=== PATIENT | female | born 1985 | race Asian ===

== ENCOUNTER 2017-08-22 12:21 | Emergency (ER) | payer OTHER ==
[~2017-08-22] VITALS: Ht 160 cm; Wt 68.0 kg
[2017-08-22 12:35] VITALS: TEMP 36.8; Ht 160 cm; Wt 68.0 kg
[2017-08-22] MEDS ORDERED: GELATIN SPONGE 12-7MM EXT ONE (13:00)
[2017-08-22 13:41] VITALS: BP 116/74; PULSE 67; O2SAT 100
--- NOTE | 2017-08-23 15:23 | EMERGENCY ROOM VISIT NOTE ---
ED Visit Note First contact with patient: 12:45 Chief Complaint: I cut my left index finger. History of Present Illness: Ms. Maryanne Rodgerss a 31-year-old [place] female who ambulates into the ED complaining of the left index finger laceration. She reports approximately one hour before she arrived in the emergency department she was cutting onions with a sharp knife and cut her left index finger. She reports she has been trying to control bleeding prior to arrival at the hospital but did not wash her wound. Currently she is complaining of a stinging/burning pain in the area of her laceration. She rates her discomfort 7/10. Her pain is nonradiating. Her pain worsens with palpation. She has not identified any alleviating factors related to the pain. She has not taken medications for pain prior to arrival at the hospital. She denies any associated symptoms including other finger pain , finger weakness/numbness/tingling. Review of Systems: As noted above in history of present illness. 8 body systems were reviewed and found to be negative as noted above. Past Medical History: Patient denies. Current Medications: Patient denies. Allergies to Medications: Patient denies. Social History: Patient is not employed; she feels safe in her home environment ; she denies tobacco use. Tetanus Immunization Status: Reports up-to-date. Physical Examination: Vital Signs: Date Time Temp Pulse Resp B/P (MAP) Pulse Ox O2 Delivery O2 Flow Rate FiO2 08/22/17 13:41 67 20 116/74 100 08/22/17 12:35 36.8 65 16 118/79 98 Room Air GENERAL: 31-year-old female in mild distress due to pain, nontoxic-appearing, afebrile and hemodynamically stable. NEUROLOGICAL: Awake, alert and oriented to person, place and time. Answering questions appropriately and following commands. SKIN: Warm, dry and pink. Left Index Finger: Patient has a small avulsion over the distal lateral aspect paronychium and distal fingernail. There is also a small avulsion of the nailbed at the same location. This avulsion measures approximately 2-4 mm. At the time of my evaluation there was no active bleeding. Additionally patient had a superficial laceration of the mid fingernail, with no active bleeding. LEFT INDEX FINGER: Soft tissue injuries as noted above. No gross bony deformity. Full range of motion in flexion and extension of the PIP and DIP joint against resistance. Throughout the finger the skin was warm and pink and capillary refill is brisk. She is able to distinguish light sensations through all dermatomes of the finger. ED Course: Patient is assessed as noted above. Wound Repair: Complexity: Basic Verbal consent was obtained after the risks and benefits were explained. The skin was prepped with betadine and a sterile field set. The wound was explored for foreign bodies and none found. Copious irrigation was performed using sterile saline. Bleeding was controlled with the application of a Surgifoam gel bandage. Hemostasis and excellent approximation was achieved. Sterile dressing applied. No complications and the patient tolerated the procedure well. Patient was educated about tonight's findings and instructed on her treatment plan; her verbalizes understanding and agreement with this plan. Clinical Impression: Skin avulsion of the left distal index finger. Superficial laceration of the left fingernail. Disposition: Patient discharged home in stable condition; prior to departure he was reassessed and subjectively reported she was feeling better Plan: Comfort measures, wound care and signs of infection were discussed with the patient. Patient was encouraged to follow-up with PCP or return to the ED for signs of infection or any new/concerning symptoms.
== END 2017-08-22 13:42 | disposition home or self-care (01) ==
LOC: C.EDB 12:23 → C.EDD 13:42
DX: S61.311A Laceration without foreign body of left index finger with damage to nail, initial encounter (principal); W26.0XXA Contact with knife, initial encounter; Y93.G1 Activity, food preparation and clean up